=== PATIENT | female | born 1935 | race Caucasian/White ===

== ENCOUNTER → 2019-05-14 | Outpatient (CLI) | payer MEDICARE ==
[~2019-05-14] MED LIST: ASPI325 PO; Calcium 600 +1 EAC1 PO; FISH OIL 1,0001 EAC1 PO; FURO20 PO; Hair, Skin & N1 EACH PO; LATA.005SO BOTHEYES; LOSARTAN-HCTZ1 EAC2 PO; NIFE90ER PO
== END | disposition home or self-care (01) ==
LOC: PLD 14:12 → LAB SHORT 14:12
DX: C44.311 Basal cell carcinoma of skin of nose (principal)
CPT/HCPCS: 88305

== ENCOUNTER 2019-08-28 06:45 | Day surgery (SDC) | payer MEDICARE ==
[~2019-08-28] VITALS: Ht 170.2 cm; Wt 105.6 kg
[~2019-08-28 06:45] MED LIST changes: +LOSARTAN-HCTZ1 EACH PO
== END 2019-08-28 08:50 | disposition home or self-care (01) ==
LOC: ORSCSDS 06:45
PROVIDERS: Ophthalmology
PROC: 08RJ3JZ Replacement of Right Lens with Synthetic Substitute, Percutaneous Approach (ICD-10-PCS; principal; 2019-08-28 08:00)
DX: H25.11 Age-related nuclear cataract, right eye (principal); I10 Essential (primary) hypertension; H40.9 Unspecified glaucoma; Z86.718 Personal history of other venous thrombosis and embolism; E66.9 Obesity, unspecified; Z68.36 Body mass index [BMI] 36.0-36.9, adult; Z79.899 Other long term (current) drug therapy
CPT/HCPCS: J2001; J2250; J3010; J3301; V2632

== ENCOUNTER 2019-09-18 08:14 | Day surgery (SDC) | payer MEDICARE ==
[~2019-09-18] VITALS: Ht 170.2 cm; Wt 106.6 kg
--- NOTE | 2019-09-18 10:02 | NUR ---
09/18/19 1002 Erinn Garcia BP 210/92 AND 202/84, DR. MACKAY NOTIFIED. NO NEW ORDERS.
== END 2019-09-18 10:49 | disposition home or self-care (01) ==
LOC: ORSCSDS 08:14
PROVIDERS: Ophthalmology
PROC: 08RK3JZ Replacement of Left Lens with Synthetic Substitute, Percutaneous Approach (ICD-10-PCS; principal; 2019-09-18 10:00)
DX: H25.12 Age-related nuclear cataract, left eye (principal); I10 Essential (primary) hypertension; I25.10 Atherosclerotic heart disease of native coronary artery without angina pectoris; E66.01 Morbid (severe) obesity due to excess calories; Z68.36 Body mass index [BMI] 36.0-36.9, adult; Z79.899 Other long term (current) drug therapy; Z79.82 Long term (current) use of aspirin
CPT/HCPCS: J2001; J2250; J3010; J3301; J7040; V2632

== ENCOUNTER 2020-11-04 12:22 | Inpatient (IN) | payer MEDICARE ==
[~2020-11-04] VITALS: Ht 167.6 cm; Wt 107.8 kg
[~2020-11-04 12:22] MED LIST changes: -ASPI325 PO; +ASPI325EC PO; -LOSARTAN-HCTZ1 EAC2 PO; +LOSARTAN-HCTZ1 EAC6 PO
[2020-11-04 13:34] LABS: BASOPHILS ABSOLUTE AUTO 0.05 K/mm3 (0.00-0.23); BASOPHILS PERCENT AUTO 1 % (0-2); EOSINOPHILS ABSOLUTE AUTO 0.02 K/mm3 (0.00-0.68); EOSINOPHILS PERCENT AUTO 0 % (0-6); Hematocrit 42.7 % (33.0-51.0); Hemoglobin 14.3 g/dL (11.5-16.0); IMMATURE GRAN ABSOLUTE AUTO 0.02 K/mm3 (0.00-0.10); IMMATURE GRAN PERCENT AUTO 0 % (0-1); LYMPHOCYTES ABSOLUTE AUTO 0.98 K/mm3 (0.84-5.20); LYMPHOCYTES PERCENT AUTO 12 % (21-46); MONOCYTES ABSOLUTE AUTO 0.71 K/mm3 (0.16-1.47); MONOCYTES PERCENT AUTO 8 % (4-13); Mean Corpuscular HGB Conc 33.5 g/dL (31.5-36.5); Mean Corpuscular Volume 96 fL (80-100); Mean Platelet Volume 10.8 fL (9.1-12.4); NEUTROPHILS ABSOLUTE AUTO 6.77 K/mm3 (1.96-9.15); NEUTROPHILS PERCENT AUTO 79 % (41-73); Platelet Count 197 K/mm3 (150-400); Red Blood Cell Count 4.47 M/mm3 (3.80-5.20); White Blood Cell Count 8.55 K/mm3 (4.00-11.30)
[2020-11-04 13:51] LABS: Albumin, Blood 3.9 g/dL (3.4-5.0); Bilirubin, Total 1.1 mg/dL (0.1-1.0); Bun/Creatinine Ratio 18.7 (12.0-20.0); Calcium, Blood 10.5 mg/dL (8.5-10.1); Creatinine, Blood 1.23 mg/dL (0.40-1.00); Globulin, Blood 4.1 g/dL (2.2-4.0); Potassium, Blood 3.6 mmol/L (3.5-5.5); Troponin I 0.037 ng/mL (0.000-0.040)
--- NOTE | 2020-11-04 18:47 | NUR ---
SHIFT SUMMARY: ASSUMED CARE OF PATIENT UPON HER ARRIVAL FROM ED AT 1753. A&O X 4, PLEASANT. DYSPNEIC WITH EXERTION, ON RA. TRANSFERRED SELF TO BED FROM [facility]. DENIES PAIN AT THIS TIME. DR. SERRANO ARRIVED SHORTLY AFTER PT'S ARRIVAL, SPENT ~ 15 MINUTES. SON ACCOMPANIED PT FROM ED. ORIENTED PT TO ROOM, CALL LIGHT, VISITING HOURS, AND BEDSIDE REPORT. DINNER TRAMaty ARRIVED AT 1830.
[2020-11-05 05:35] LABS: BASOPHILS ABSOLUTE AUTO 0.05 K/mm3 (0.00-0.23); BASOPHILS PERCENT AUTO 1 % (0-2); EOSINOPHILS ABSOLUTE AUTO 0.14 K/mm3 (0.00-0.68); EOSINOPHILS PERCENT AUTO 3 % (0-6); IMMATURE GRAN ABSOLUTE AUTO 0.01 K/mm3 (0.00-0.10); IMMATURE GRAN PERCENT AUTO 0 % (0-1); LYMPHOCYTES ABSOLUTE AUTO 1.29 K/mm3 (0.84-5.20); LYMPHOCYTES PERCENT AUTO 24 % (21-46); MONOCYTES ABSOLUTE AUTO 0.59 K/mm3 (0.16-1.47); MONOCYTES PERCENT AUTO 11 % (4-13); Mean Corpuscular HGB Conc 33.3 g/dL (31.5-36.5); Mean Corpuscular Volume 96 fL (80-100); Mean Platelet Volume 10.3 fL (9.1-12.4); NEUTROPHILS ABSOLUTE AUTO 3.26 K/mm3 (1.96-9.15); NEUTROPHILS PERCENT AUTO 61 % (41-73); Platelet Count 159 K/mm3 (150-400); RDW Coefficient Variation 14.1 % (11.7-14.2); RDW Standard Deviation 49.6 fL (35.1-46.3); Red Blood Cell Count 4.06 M/mm3 (3.80-5.20); White Blood Cell Count 5.34 K/mm3 (4.00-11.30)
--- NOTE | 2020-11-05 05:39 | NUR ---
SHIFT SUMMARY NO ACUTE CHANGES THIS SHIFT, NO C/O ANY KIND, PT UP TO BSC MULTIPLE TIMES T/O THE NIGHT (IV LASSOFIYA @ 1624), APPEARS TO BE SLEEPING AT THIS TIME, CALL LIGHT IN REACH, WILL CONT TO MONITOR UNTIL REPORT GIVNE TO DAY RN.
[2020-11-05 06:17] LABS: Alanine Aminotransfer (ALT/SGP 57 U/L (12-78); Albumin, Blood 3.5 g/dL (3.4-5.0); Alk Phos 79 U/L (50-136); Anion Gap 11 mmol/L (6-16); Aspartate Aminotrans (AST/SGOT 37 U/L (12-37); Bilirubin, Total 0.9 mg/dL (0.1-1.0); Blood Urea Nitrogen 27 mg/dL (8-24); Bun/Creatinine Ratio 21.8 (12.0-20.0); CHOL/HDL RATIO 2.2; CO2, Blood 24 mmol/L (21-32); Calcium, Blood 9.7 mg/dL (8.5-10.1); Chloride, Blood 101 mmol/L (98-108); Cholesterol 109 mg/dL (50-200); Creatinine, Blood 1.24 mg/dL (0.40-1.00); Globulin, Blood 3.5 g/dL (2.2-4.0); Glomerular Filtration Rate 44 (60-); Glucose, Blood 111 mg/dL (70-99); HDL Cholesterol 50 mg/dL (>39); LDL/HDL RATIO 0.7; Low Density Lipoprotein Chol 35 mg/dL (0-110); Potassium, Blood 3.4 mmol/L (3.5-5.5); Sodium, Blood 136 mmol/L (136-145); Triglycerides 121 mg/dL (30-160); Very Low Density Lipoprot Chol 24 mg/dL (6-32)
--- NOTE | 2020-11-05 15:32 | NUR ---
Patient is lying in bed and alert. Patient tells me about her medical issues and the plan to "get the fluid off" her lungs. Patient talks at length about her 6 grown children and their lives and about her Mandaeism elmira. I find no spiritual distress at this time. I reinforce helpful attitudes and practices and provide therapeutic listening and prayer. Patient responds well and shows signs of being encouraged in her elmira.
--- NOTE | 2020-11-05 17:20 | NUR ---
PT A&O AND ABLE TO MAKE NEEDS KNOWN. NO ACUTE CHANGES THIS SHIFT. PT PAINTER MIRROR CONSULT ORDER AND DR BARNES CAME AND DISCUSSED CHF DIAGNOSIS AND ECHO RESULTS WITH PATIENT. PT DID NOT HAVE ANY QUESTION FOR DR AT TIME OF CONSULT. PT DENIES P,N,V. PT DOES HAVE SHORTNESS OF BREATH BUT STATES "ITS BETTER THAN IT WAS." PT IN ROOM VISITING WITH SON. CALL LIGHT W/IN REACH. WILL CONTINUE TO MONITOR UNTILL INSTRUCTIONAL TECHNOLOGY COORDINATOR NURSE ARRIVES.
--- NOTE | 2020-11-06 04:29 | NUR ---
SHIFT SUMMARY PT REPORTS SOB EVEN AT REST THIS SHIFT, 1L O2 VIA NC APPLIED FOR COMFORT, PT APPEARED TO SLEEP WELL T/O THE NIGHT BREATHING EASY AND UNLABORED, NO OTHER C/O ANY KIND, SLEEPING AT THIS TIME, CALL LIGHT IN REACH, WILL CONT TO MONITOR UNTIL REPORT GIVEN TO DAY RN.
[2020-11-06 05:52] LABS: Bun/Creatinine Ratio 24.8 (12.0-20.0); Calcium, Blood 9.7 mg/dL (8.5-10.1); Creatinine, Blood 1.29 mg/dL (0.40-1.00); Potassium, Blood 3.9 mmol/L (3.5-5.5)
--- NOTE | 2020-11-06 14:22 | NUR ---
ADMIT: 11/04/20 DISCHARGE: DX: CHF CC:cpeabody JOHNNIE CALL: Met with Padmini, call her at home for johnnie [address] Sánchez or johnnie, Female please. RESIDENCE: home- alone CAREGIVER: Janak Gaspar, Jackie, DX: CHF, CKD, CAD, HTN, hyperlipidemia, see list DME: cane CCM: none Ordered Ronda chf education 11/06/20 HOME HEALTH: 11/06/20 Not homebound at this time. [facility]- [id number]- SUMMARY: Admit: 11/04/20 11/06/20 Met with Padmini, Dr Sánchez is treating chf, expecting her to stay the weekend. Padmini lives alone but has 3 children that all live close and can help her with any additional care needs. Uses a cane some of the time for mobility, just recently for her SOB. Requested to change providers from Adeel Gupta to Dr Sánchez. She just prefers a female DR. Discussed Ronda CHF education. Agreed to let me order. sent order through [facility] today. does not think she is home bound and will not need Home health. Reviewed discharge check list and transition of care follow up visit for next week. Left JOHNNIE letter with Padmini. cp 1. Decompensated left ventricular systolic dysfunction. The patient has had progressive symptoms over the last month. She has more chronic changes noted on her echocardiogram suggesting that this has been a long process in the making. She has received an initial dose of furosemide in the emergency department. .
--- NOTE | 2020-11-06 17:32 | NUR ---
SHIFT SUMMARY PT AOX4; CALLS APPROPRIATELY. PT DENIES ANY CP OR DISCOMFORT. PT INDEPENDENT IN THE ROOM. PT HAD A SHOWER TODAY. PT IS ON TELE NSR. PT C/O OF NOT ENOUGH URINE, BLADDER SCAN THE PT; 0ML POSTVOIDAL. ENCOURAGED PO FLUIDS. BED IS IN THE LOWEST POSITION AND CALL LIGHT WITHIN REACH
[2020-11-07 06:01] LABS: Bun/Creatinine Ratio 27.3 (12.0-20.0); Calcium, Blood 9.6 mg/dL (8.5-10.1); Creatinine, Blood 1.28 mg/dL (0.40-1.00)
--- NOTE | 2020-11-07 06:10 | NUR ---
SHIFT SUMMARY: PATIENT IS A&OX4, VSS, UP TO THE BSC TO VOID. SOB WITH ACT. 1 L NC IS ON FOR COMFORT, 98% ON RA AND 96% ON 1L WHILE SLEEPING.
--- NOTE | 2020-11-07 18:39 | NUR ---
SHIFT SUMMARY PT AxOx4. PLEASANT AND COOPERATIVE W/ CARE. INDEPENDENT IN THE ROOM. PER CULVERT INSTALLER, PT TELE RUNNING SR BBB, PVC AT 65. MAZIN FELIX HOSE PLACED ON PATIENT. PER , PLAN IS TO CONTINUE DIURESING AND POSSIBLE DISCHARGE TOMORROW. VITALS REVIEWED. PT'S DAUGHTER IN ROOM VISITING TODAY, UPDATED ON PLAN. CURRENTY RESTING IN CHAIR WITH CALL LIGHT IN REACH. DENIES ANY NEEDS AT THIS TIME.
[2020-11-08 05:55] LABS: Bun/Creatinine Ratio 33.1 (12.0-20.0); Calcium, Blood 9.3 mg/dL (8.5-10.1); Creatinine, Blood 1.21 mg/dL (0.40-1.00); Potassium, Blood 4.3 mmol/L (3.5-5.5)
--- NOTE | 2020-11-08 06:06 | NUR ---
SHIFT SUMMARY: A&OX4, VSS, NO REPORTS OF PAIN. PATIENT HAS NOT SLEPT WELL IN 2 NIGHT DUE TO FREQUENT URINATION. SHE IS VISIBLY EXAUSTED AND SOB WITH ACTIVITY. PATIENT NOW REQUIRES ASSISTANCE WITH TRANSFER TO BS TO ASSIST WITH CORDS AND WIRES. BED ALARM IS ALSO UTILIZED FOR SAFETY DURING HOURS OF SLEEP. 1L 02 IS ALSO APPLIED DURING SLEEP FOR COMFORT.
--- NOTE | 2020-11-08 16:37 | NUR ---
SHIFT SUMMARY NO ACUTE CHANGES T/O SHIFT, A&Ox4, CALM AND COOPERATIVE c CARE. CONTINUING TO DIURESIS PT. MD WOULD LIKE TO SEE MORE OUTPUT, AN ADDITIONAL ONE TIME DOSE OF 80 MG IV LASIX GIVEN PER MD. SPIRONOLACTONE ADDED TO PT EMAR WELL. PT WEARING TEDS MOST OF SHIFT. ON RA T/O SHIFT, REPORTS SOME SOB c EXERTION. INDEPENDENT IN ROOM. DAUGHTER BROUGHT PT SOME FOOD/SNACKS BECAUSE PT DOES NOT LIKE FOOD PROVIDED BY HOSPITAL AND HAS NOT EATEN MUCH SINCE ADMISSION. PT AND DAUGHTER AWARE OF LOW SODIUM RECOMMENDED DIET. PT IS CURRENTLY SITTING IN A CHAIR AND VISITING c HER DAUGHTER. CALL LIGHT IS WITHIN REACH, PT CALLS APPROPRIATELY.
[2020-11-09 04:49] LABS: BASOPHILS ABSOLUTE AUTO 0.06 K/mm3 (0.00-0.23); BASOPHILS PERCENT AUTO 1 % (0-2); EOSINOPHILS ABSOLUTE AUTO 0.15 K/mm3 (0.00-0.68); EOSINOPHILS PERCENT AUTO 3 % (0-6); Hematocrit 38.6 % (33.0-51.0); Hemoglobin 13.1 g/dL (11.5-16.0); IMMATURE GRAN ABSOLUTE AUTO 0.01 K/mm3 (0.00-0.10); IMMATURE GRAN PERCENT AUTO 0 % (0-1); LYMPHOCYTES ABSOLUTE AUTO 1.33 K/mm3 (0.84-5.20); LYMPHOCYTES PERCENT AUTO 27 % (21-46); MONOCYTES ABSOLUTE AUTO 0.59 K/mm3 (0.16-1.47); MONOCYTES PERCENT AUTO 12 % (4-13); Mean Corpuscular HGB 31.7 pg (26.0-34.0); Mean Corpuscular HGB Conc 33.9 g/dL (31.5-36.5); Mean Corpuscular Volume 94 fL (80-100); Mean Platelet Volume 10.9 fL (9.1-12.4); NEUTROPHILS PERCENT AUTO 57 % (41-73); Platelet Count 171 K/mm3 (150-400); RDW Coefficient Variation 13.6 % (11.7-14.2); RDW Standard Deviation 46.1 fL (35.1-46.3); Red Blood Cell Count 4.13 M/mm3 (3.80-5.20); White Blood Cell Count 4.94 K/mm3 (4.00-11.30)
--- NOTE | 2020-11-09 05:01 | NUR ---
SHIFT SUMMARY AOX4. VSS. TELE NSR c BBB @60. SPO2 >92% ON RA, OCCASIONALLY WILL PLACE 1L O2 ON FOR COMFORT-DENIES O2 USE @HOME. FINE CRACKLES HEARD IN BASES. +2 RLE +1 LLE. STATES BREATHING BETTER, DENIES DYSPNEA c ACTIVITY. RECIEVING IV LASIX, STRICT I&O. REPORTS 9/10 CHRONIC BACK PAIN, DENIES NEED FOR ANY MEDICATION. IND IN RM. CALL LIGHT IN REACH & PT ABLE TO MAKE NEEDS KNOWN.
[2020-11-09 05:09] LABS: Albumin, Blood 3.4 g/dL (3.4-5.0); Bilirubin, Total 0.9 mg/dL (0.1-1.0); Bun/Creatinine Ratio 29.5 (12.0-20.0); Calcium, Blood 9.1 mg/dL (8.5-10.1); Creatinine, Blood 1.29 mg/dL (0.40-1.00); Globulin, Blood 3.4 g/dL (2.2-4.0); Potassium, Blood 4.3 mmol/L (3.5-5.5); Total Protein, Blood 6.8 g/dL (6.4-8.2)
--- NOTE | 2020-11-09 10:06 | NUR ---
PHYSICIAN NOTIFIED TELE CALLED AND REPORTED PVC'S INCREASED TO ABOUT 60 PER MINUTE. SATGERMAINETHAN NOTIFIED VIA TELEPHONE. NO ORDERS GIVEN AT THIS TIME. PT IS ASYMPTOMATIC. CURRENTLY SLEEPING AND APPEARS TO BE IN NO DISTRESS.
[2020-11-09] MEDS ORDERED: CARV3.125 PO (13:15)
--- NOTE | 2020-11-09 13:15 | NUR ---
SUMMARY: Admit: /- met with pt, she is stable for d/c home. Son will come and get her to take her home. Has children and neighbor that could help her. Ordered bedside commode and walker through [facility]. Pt to follow up with Dr. Sánchez.-lawson
[2020-11-09] MEDS ORDERED: ALDACTONE25 MG PO (13:16)
[2020-11-09] MEDS ORDERED: LEVSOD25 PO (13:16)
--- NOTE | 2020-11-09 15:54 | NUR ---
PT DISCHARGED @ APPROX 1545. TAKEN DOWN TO HER PRIVATE VEHICLE BY RN VIA WHEELCHAIR. SON, JODI, CAME TO PICK HER UP. DISCHARGE INSTRUCTIONS WERE REVIEWED c PT WELL EDUCATION REGARDING PROVIDER RECOMMENDATIONS. PT STATED SHE HAD NO QUESTIONS AT THIS TIME. HER IV WAS REMOVED AND SITE APPEARED WNL. TELE REMOVED. NEEDED RX WERE FAXED TO PHARMACY. PT STATED SHE HAD ALL OF HER BELONGINGS.
== END 2020-11-09 15:43 | disposition home health service (06) | DRG 291 ==
LOC: ER 12:22 → MEDS 16:55 → ENPENDDIS 11-09 12:56 → MEDS 11-09 15:43
PROVIDERS: Family Medicine; Physician Assistant; ADMIT Internal Medicine
DX: I13.0 Hypertensive heart and chronic kidney disease with heart failure and stage 1 through stage 4 chronic kidney disease, or unspecified chronic kidney disease (principal); I50.21 Acute systolic (congestive) heart failure; Z66 Do not resuscitate; N18.32 Chronic kidney disease, stage 3b; E03.9 Hypothyroidism, unspecified; I25.10 Atherosclerotic heart disease of native coronary artery without angina pectoris; I35.0 Nonrheumatic aortic (valve) stenosis; I27.29 Other secondary pulmonary hypertension; I08.1 Rheumatic disorders of both mitral and tricuspid valves; E66.01 Morbid (severe) obesity due to excess calories; Z68.37 Body mass index [BMI] 37.0-37.9, adult; Z90.49 Acquired absence of other specified parts of digestive tract; Z98.890 Other specified postprocedural states; Z90.89 Acquired absence of other organs; Z90.710 Acquired absence of both cervix and uterus; Z79.82 Long term (current) use of aspirin; Z79.899 Other long term (current) drug therapy
CPT/HCPCS: 36415; 71046; 80048; 80053; 80061; 83735; 83880; 84439; 84443; 84484; 85025; 93005; 93010; 93306; 96374-59; 99285-25; A9270; A9270-GY; J1650; J1940

== ENCOUNTER 2021-10-05 06:18 | Day surgery (SDC) | payer MEDICARE ==
[~2021-10-05] VITALS: Ht 167.6 cm; Wt 94.0 kg
[~2021-10-05 06:18] MED LIST changes: +ALDACTONE25 MG PO; +CARV3.125 PO; +CLOPIDOGREL75 MG PO; +Isosorbide Mono30 MG PO; +LEVSOD25 PO
[2021-10-05] MEDS ORDERED: ASPI81CH PO (06:41)
[2021-10-05] MEDS ORDERED: METO25ER PO (06:43)
[2021-10-05] MEDS ORDERED: TORSE20 PO (06:44)
[2021-10-05] MEDS ORDERED: ATOR40TA PO (08:43)
--- NOTE | 2021-10-05 11:09 | NUR ---
PT UP TO BATHROOM, R WRIST STABLE. PT DRESSED WITH ASSIST FROM DAUGHTER. SALINE LOCK REMOVED WITH CATHETER INTACT. TR BAND REMOVED, AREA CLEANSED AND CLOTH DOT PLACED AT SITE. DISCHARGE INSTRUCTIONS REVIEWED WITH PT AND DAUGHTER, BOTH VERBALIZE UNDERSTANDING. ARM BOARD PLACED BACK ON R FOREARM. PT TO PRIVATE VEHICLE PER W/C WITH ONE STAFF.
== END 2021-10-05 11:10 | disposition home or self-care (01) ==
LOC: MHTC 06:18
DX: I25.118 Atherosclerotic heart disease of native coronary artery with other forms of angina pectoris (principal); I25.5 Ischemic cardiomyopathy; I13.0 Hypertensive heart and chronic kidney disease with heart failure and stage 1 through stage 4 chronic kidney disease, or unspecified chronic kidney disease; N18.9 Chronic kidney disease, unspecified; I50.9 Heart failure, unspecified; E78.5 Hyperlipidemia, unspecified; I35.0 Nonrheumatic aortic (valve) stenosis; E03.9 Hypothyroidism, unspecified; E66.8 Other obesity; Z68.33 Body mass index [BMI] 33.0-33.9, adult
CPT/HCPCS: 93456; 99152; C1769; C1887; C1894; J1644; J2250; J3010; J7030; J7050; Q9967